=== PATIENT | male | born 1970 | race Hispanic/Latino ===

== ENCOUNTER → 2024-06-12 11:02 | Outpatient (REF) | payer OTHER, SELFPAY ==
[2024-06-12 09:49] LABS: % Basophils 0.6 % (0-2); % Eosinophils 2.6 % (0-6); % Immature Granulocytes 0.4 % (0-0.5); % Lymphocytes 16.3 % (20.5-51.1); % Neutrophils 66.1 % (42.2-75.2); Absolute Eosinophils 0.1 10^3/uL (0-0.7); Absolute Lymphocytes 0.9 10^3/uL (1.2-3.4); Absolute Monocytes 0.7 10^3/uL (0.1-0.6); Absolute Neutrophils 3.5 10^3/uL (1.4-6.5); Hematocrit 37.9 % (39.0-52.0); Hemoglobin 13.9 g/dL (13.0-18.0); Mean Corp Hgb Conc. 36.7 g/dL (33.0-37.0); Mean Corpuscular Hgb 31.1 pg (27.0-31.0); Mean Corpuscular Volume 84.8 fL (80.0-94.0); Platelet Count 172 10^3/uL (130-400); Red Blood Cell Count 4.47 10^6/uL (4.70-6.10); White Blood Cell Count 5.3 10^3/uL (4.8-10.8)
[2024-06-12 10:56] LABS: ALT (SGPT) 98 U/L (0-50); AST (SGOT) 70 U/L (17-59); Albumin 4.4 g/dl (3.5-5.0); Alkaline Phosphatase 125 U/L (38-126); Blood Urea Nitrogen 14 mg/dl (9-20); Carbon Dioxide 27 mmol/L (22-30); Chloride 106 mmol/L (98-107); Glucose 100 mg/dl (70-99); Potassium 4.3 mmol/L (3.5-5.1); Sodium 141 mmol/L (135-145); Total Bilirubin 0.7 mg/dl (0.2-1.3); eGFR > 60.00
== END ==
LOC: OIDL 11:02
PROVIDERS: ATTENDING PHYSICIAN Internal Medicine Hematology & Oncology
DX: C85.90 Non-Hodgkin lymphoma, unspecified, unspecified site (principal)
CPT/HCPCS: 80053; 85025

== ENCOUNTER → 2024-06-12 16:26 | Outpatient (REF) | payer OTHER, SELFPAY | LOC: MRI 3T 16:26 | PROVIDERS: ATTENDING PHYSICIAN Internal Medicine Hematology & Oncology | DX: C85.90 Non-Hodgkin lymphoma, unspecified, unspecified site (principal) | CPT/HCPCS: 72158 ==

== ENCOUNTER → 2024-12-21 06:54 | Outpatient (REF) | payer OTHER, SELFPAY ==
[2024-12-21 07:58] VITALS: BP 117/81; BP_SYST 82
[2024-12-21 08:03] LABS: Hematocrit 30.1 % (39.0-52.0); Hemoglobin 10.8 g/dL (13.0-18.0); Mean Corp Hgb Conc. 35.9 g/dL (33.0-37.0); Mean Corpuscular Hgb 31.6 pg (27.0-31.0); Mean Platelet Volume 9.9 fL (7.4-10.4); Platelet Count 95 10^3/uL (130-400); Red Blood Cell Count 3.42 10^6/uL (4.70-6.10); Red Cell Dist. Width 13.7 % (11.5-14.5)
[2024-12-21 08:06] LABS: INR 0.94; PT 12.9 Sec (11.4-14.6)
[2024-12-21] MEDS: NSS (PRESERVATIVE FREE) 0.25 ML IV (08:15)
[2024-12-21] MEDS: ATIVAN 0.5 MG IV (08:15)
[2024-12-21 09:15] VITALS: BP 115/57
[2024-12-21 09:52] LABS: Band Neutrophils 10 % (0-3); Eosinophils 2 % (0-6); Lymphocytes 27 % (20-51); Monocytes 20 % (2-9); Segmented Neutrophils 41 % (42-75)
[2024-12-21 09:53] LABS: Platelets Checked YES
[2024-12-21 09:55] LABS: Hypochromasia Slight; Normal RBC Morphology No; Ovalocytes FEW
[2024-12-21 09:57] LABS: Total Cells Counted 100
[2024-12-21 10:12] LABS: White Blood Cell Count 1.4 10^3/uL (4.8-10.8)
[2024-12-21 10:33] LABS: Absolute Neutrophils -Man Diff 0.7 10^3/uL (1.4-6.5)
== END ==
LOC: RADI 06:54
PROVIDERS: ATTENDING PHYSICIAN Internal Medicine Hematology & Oncology
DX: C82.10 Follicular lymphoma grade II, unspecified site (principal)
CPT/HCPCS: 88305; 88311; 88312; 38222; 77012; 85025; 85610; 88313

== ENCOUNTER → 2024-12-24 15:40 | Outpatient (REF) | payer OTHER, SELFPAY | LOC: RAD 15:40 | PROVIDERS: ATTENDING PHYSICIAN Nurse Practitioner Acute Care; FAMILY PHYSICIAN Family Medicine | DX: C85.90 Non-Hodgkin lymphoma, unspecified, unspecified site (principal); M79.662 Pain in left lower leg | CPT/HCPCS: 93971 ==

== ENCOUNTER → 2024-12-25 08:58 | Outpatient (REF) | payer OTHER, SELFPAY ==
[2024-12-25 09:17] VITALS: BMI 25.5
[2024-12-25 09:19] VITALS: BP 115/79; BP_SYST 65
[2024-12-25 11:30] VITALS: BP 113/72
[2024-12-25 11:35] VITALS: BP 106/74
[2024-12-25 11:40] VITALS: BP 106/70
[2024-12-25 11:45] VITALS: BP 119/84
[2024-12-25 11:50] VITALS: BP 115/77
== END ==
LOC: RADI 08:58
PROVIDERS: ATTENDING PHYSICIAN Internal Medicine Hematology & Oncology
DX: C83.33 Diffuse large B-cell lymphoma, intra-abdominal lymph nodes (principal)
CPT/HCPCS: 88305; 38222; 49180; 77012; 88333; 88341; 88342; 99152; 99153

== ENCOUNTER → 2025-01-24 14:53 | Outpatient (REF) | payer OTHER, SELFPAY | LOC: RCS 14:53 | PROVIDERS: ATTENDING PHYSICIAN Internal Medicine Hematology & Oncology | DX: C85.90 Non-Hodgkin lymphoma, unspecified, unspecified site (principal); M79.662 Pain in left lower leg | CPT/HCPCS: 93306; 93356 ==

== ENCOUNTER → 2025-02-21 09:33 | Outpatient (REF) | payer OTHER, SELFPAY ==
[2025-02-21 10:06] LABS: ALT (SGPT) 26 U/L (0-50); AST (SGOT) 20 U/L (17-59); Albumin 4.1 g/dl (3.5-5.0); Alkaline Phosphatase 141 U/L (38-126); Blood Urea Nitrogen 10 mg/dl (9-20); Calcium 8.6 mg/dl (8.4-10.2); Carbon Dioxide 24 mmol/L (22-30); Chloride 110 mmol/L (98-107); Glucose 124 mg/dl (70-99); Potassium 3.7 mmol/L (3.5-5.1); Sodium 140 mmol/L (135-145); Total Protein 6.4 g/dl (6.3-8.2); eGFR > 60.00
== END ==
LOC: OIDL 09:33
PROVIDERS: ATTENDING PHYSICIAN Internal Medicine Hematology & Oncology
DX: C85.90 Non-Hodgkin lymphoma, unspecified, unspecified site (principal); M79.662 Pain in left lower leg
CPT/HCPCS: 80053

== ENCOUNTER → 2025-03-14 07:35 | Outpatient (REF) | payer OTHER, SELFPAY ==
[2025-03-14 08:04] LABS: Hematocrit 25.8 % (39.0-52.0); Hemoglobin 8.8 g/dL (13.0-18.0); Mean Corp Hgb Conc. 34.1 g/dL (33.0-37.0); Mean Corpuscular Volume 92.1 fL (80.0-94.0); Nucleated Red Blood Cells % 0 % (-); Platelet Count 178 10^3/uL (130-400); Red Cell Dist. Width 18.7 % (11.5-14.5)
[2025-03-14 09:13] LABS: ALT (SGPT) 22 U/L (0-50); AST (SGOT) 21 U/L (17-59); Albumin 4.1 g/dl (3.5-5.0); Alkaline Phosphatase 133 U/L (38-126); Blood Urea Nitrogen 10 mg/dl (9-20); Calcium 9.0 mg/dl (8.4-10.2); Carbon Dioxide 25 mmol/L (22-30); Chloride 108 mmol/L (98-107); Glucose 100 mg/dl (70-99); Potassium 4.1 mmol/L (3.5-5.1); Sodium 139 mmol/L (135-145); Total Protein 6.6 g/dl (6.3-8.2); Uric Acid 6.2 mg/dl (3.5-8.5); eGFR > 60.00
== END ==
LOC: REG 07:35
PROVIDERS: ATTENDING PHYSICIAN Internal Medicine Hematology & Oncology
DX: C85.90 Non-Hodgkin lymphoma, unspecified, unspecified site (principal)
CPT/HCPCS: 36415; 80053; 84550; 85025

== ENCOUNTER → 2025-04-08 10:15 | Outpatient (REF) | payer OTHER, SELFPAY | LOC: RAD 10:15 | PROVIDERS: ATTENDING PHYSICIAN Internal Medicine Hematology & Oncology | DX: C85.90 Non-Hodgkin lymphoma, unspecified, unspecified site (principal); M79.662 Pain in left lower leg | CPT/HCPCS: 71046 ==

== ENCOUNTER → 2025-05-15 16:06 | Outpatient (REF) | payer OTHER, SELFPAY | LOC: RCS 16:06 | PROVIDERS: ATTENDING PHYSICIAN Internal Medicine Hematology & Oncology; FAMILY PHYSICIAN Nurse Practitioner Family | DX: C85.90 Non-Hodgkin lymphoma, unspecified, unspecified site (principal); M79.662 Pain in left lower leg | CPT/HCPCS: 93306; 93356 ==

== ENCOUNTER 2025-05-24 10:06 | Outpatient (RCR) | payer OTHER, SELFPAY ==
[2025-04-29 09:24] VITALS: BP 94/61
[2025-04-29 09:41] VITALS: BP 98/66
[2025-04-29 11:09] VITALS: BP 96/62
[2025-04-29 11:21] VITALS: BP 96/62
[2025-04-29 11:43] VITALS: BP 98/57
[2025-04-29 13:38] VITALS: BP 100/63
[2025-05-24 10:15] VITALS: BP 102/52
[2025-05-24 10:39] VITALS: BP 102/52
[2025-05-24 10:56] VITALS: BP 91/60
[2025-05-24 12:25] VITALS: BP 91/64
== END 2025-05-24 23:59 | disposition home or self-care (01) ==
LOC: OID 10:06
PROVIDERS: ATTENDING PHYSICIAN Internal Medicine Hematology & Oncology
DX: C85.90 Non-Hodgkin lymphoma, unspecified, unspecified site (principal); M79.662 Pain in left lower leg
CPT/HCPCS: 36415; 36430; 86850; 86900; 86901; 86920; P9016

== ENCOUNTER → 2025-06-25 13:42 | Outpatient (REF) | payer OTHER, SELFPAY | LOC: HWRAD 13:42 | PROVIDERS: ATTENDING PHYSICIAN Internal Medicine Critical Care Medicine; FAMILY PHYSICIAN Nurse Practitioner Family | DX: R93.89 Abnormal findings on diagnostic imaging of other specified body structures (principal); R91.8 Other nonspecific abnormal finding of lung field | CPT/HCPCS: 71250 ==

== ENCOUNTER 2025-07-01 06:09 | Day surgery (SDC) | payer OTHER, SELFPAY ==
[2025-06-25 08:57] LABS: INR 1.04; PT 13.7 Sec (11.4-14.6)
[2025-06-25 08:58] LABS: APTT 31.4 Sec (23.4-35.0)
[2025-06-25 08:59] LABS: Hematocrit 25.7 % (39.0-52.0); Hemoglobin 8.8 g/dL (13.0-18.0); Mean Corp Hgb Conc. 34.2 g/dL (33.0-37.0); Mean Corpuscular Volume 100.8 fL (80.0-94.0); Platelet Count 86 10^3/uL (130-400); Red Cell Dist. Width 19.0 % (11.5-14.5)
[2025-06-25 10:01] LABS: Blood Urea Nitrogen 14 mg/dl (9-20); Calcium 8.7 mg/dl (8.4-10.2); Carbon Dioxide 26 mmol/L (22-30); Chloride 105 mmol/L (98-107); Glucose 89 mg/dl (70-99); Potassium 3.8 mmol/L (3.5-5.1); Sodium 137 mmol/L (135-145); eGFR > 60.00
--- NOTE | 2025-06-25 12:50 | PTCARENOTE ---
Abn ECG & Labs, Dr. Gonzalez notified, no additional interventions requested.
[2025-06-25 14:36] VITALS: BMI 23.6
--- NOTE | 2025-06-26 15:07 | PTCARENOTE ---
Abnormal labs Hbg 8.8, WBC 2.9, plt [address] Castro, no further interventions requested.
[2025-07-01 06:45] VITALS: BP 112/73
[2025-07-01 06:50] VITALS: BMI 22.6
[2025-07-01 06:56] VITALS: BMI 22.6
[2025-07-01 06:57] VITALS: BMI 22.6
[2025-07-01] MEDS: NSS 500 IV (06:58)
[2025-07-01 08:50] VITALS: BP 112/73
[2025-07-01 08:51] VITALS: BP 107/67
[2025-07-01 09:00] VITALS: BP 114/75
[2025-07-01 09:30] VITALS: BP 104/65
[2025-07-01 09:45] VITALS: BP 110/63
== END 2025-07-01 10:09 | disposition home or self-care (01) ==
LOC: SDS 06:09
PROVIDERS: ATTENDING PHYSICIAN Internal Medicine
DX: R91.8 Other nonspecific abnormal finding of lung field (principal)
CPT/HCPCS: 31629; 31627; 31654; 31652; 31623; 31628; 71045; 76000; 80048; 85027; 85610; 85730; 87015; 87070; 87102; 87116; 87205; 88112; 88173; 88305; 88333; 93005; 94640; C1713; C1887